=== PATIENT | male | born 1985 | race Two or more races ===

== ENCOUNTER 2017-05-07 18:22 | Emergency (ER) | payer MEDICAID ==
[~2017-05-07] VITALS: Ht 170.2 cm; Wt 81.6 kg
[2017-05-07] MEDS ORDERED: SODIUM CHLORIDE FLUSH 10ML SYR IVF ONE (19:00)
[2017-05-07] MEDS ORDERED: PLEASE ENTER HEIGHT AND WEIGHT MC SCH (19:00)
[2017-05-07] MEDS ORDERED: ASPIRIN 81 MG TABLET CHEW PO ONE (19:00)
[2017-05-07] MEDS ORDERED: ASPIRIN 81 MG TABLET CHEW ONE (19:07)
[2017-05-07] MEDS ORDERED: METO25TA91 PO (19:22)
[2017-05-07] MEDS ORDERED: ISOS5TAB2 PO (19:22)
[2017-05-07] MEDS ORDERED: ASPI-515 PO (19:22)
[2017-05-07 19:25] LABS: BLOOD UREA NITROGEN 8 mg/dL (7-18)
[2017-05-07 19:29] LABS: IS PT STATUS REG ER OR PRE ER? YES
[2017-05-07 19:30] LABS: HEMOGLOBIN 15.4 g/dL (13.7-18.0)
[2017-05-07 21:32] VITALS: BP 97/45
== END 2017-05-07 21:35 | disposition home or self-care (01) ==
LOC: ED 21:30
DX: R07.89 Other chest pain (principal); I25.2 Old myocardial infarction
CPT/HCPCS: 36415; 71010; 80048; 82040; 83880; 84484; 85025; 85379; 93005; 99285